=== PATIENT | female | born 1995 | race Hispanic/Latino ===

== ENCOUNTER 2023-01-06 21:33 | Day surgery (SDC) | payer OTHER, MEDICAID ==
[2023-01-06 21:59] VITALS: BMI 39.2
[2023-01-06] MEDS ORDERED: hydrALAZINE 20 MG/ML VIAL SLOW IVP PRN (22:17)
[2023-01-06] MEDS ORDERED: Acetaminophen 500 MG TAB PO SCH (22:30)
== END 2023-01-06 22:55 | disposition home or self-care (01) ==
LOC: CSHLD/OP 21:33
PROVIDERS: ATTEND Obstetrics & Gynecology
DX: O99.891 Other specified diseases and conditions complicating pregnancy (principal); M54.50 Low back pain, unspecified; O99.342 Other mental disorders complicating pregnancy, second trimester; F41.9 Anxiety disorder, unspecified; Z79.899 Other long term (current) drug therapy; Z90.49 Acquired absence of other specified parts of digestive tract; Z3A.24 24 weeks gestation of pregnancy